=== PATIENT | female | born 1940 ===

== ENCOUNTER 2018-01-12 06:05 | Day surgery (SDC) | payer OTHER ==
[~2018-01-12 06:05] MED LIST: SIMVASTATIN10 MG PO; SYNTHROID75 MCG PO; TENORMIN50 M1 PO
[2018-01-12] MEDS ORDERED: ZITHROMAX TRI-500 MG PO (09:19)
== END 2018-01-12 13:35 | disposition home or self-care (01) ==
LOC: CIR.AMB 06:05
DX: C54.1 Malignant neoplasm of endometrium (principal)

== ENCOUNTER 2018-03-07 14:44 | Inpatient (IN) | payer OTHER ==
[~2018-03-07] VITALS: Ht 160 cm; Wt 84.4 kg
[~2018-03-07 14:44] MED LIST changes: +ZITHROMAX TRI-500 MG PO
== END 2018-03-10 19:25 | disposition home or self-care (01) | DRG 741 ==
LOC: O/R 03-09 07:02 → OB/GYN 03-09 07:02 → O/R 03-09 14:43 → OB/GYN 03-09 17:51 → O/R 03-09 20:00 → OB/GYN 03-10 19:25
PROVIDERS: Obstetrics & Gynecology Gynecologic Oncology
PROC: 0UT24ZZ Resection of Bilateral Ovaries, Percutaneous Endoscopic Approach (ICD-10-PCS; 2018-03-09)
PROC: 0UT74ZZ Resection of Bilateral Fallopian Tubes, Percutaneous Endoscopic Approach (ICD-10-PCS; 2018-03-09)
PROC: 07BC4ZX Excision of Pelvis Lymphatic, Percutaneous Endoscopic Approach, Diagnostic (ICD-10-PCS; 2018-03-09)
PROC: 0DN84ZZ Release Small Intestine, Percutaneous Endoscopic Approach (ICD-10-PCS; 2018-03-09)
PROC: 0DNU4ZZ Release Omentum, Percutaneous Endoscopic Approach (ICD-10-PCS; 2018-03-09)
PROC: 0UT94ZZ Resection of Uterus, Percutaneous Endoscopic Approach (ICD-10-PCS; principal; 2018-03-09 20:00)
DX: C54.1 Malignant neoplasm of endometrium (principal); Z85.3 Personal history of malignant neoplasm of breast

== ENCOUNTER 2023-11-16 10:04 | Outpatient (CLI) | payer OTHER | END 2023-11-16 10:17 | disposition home or self-care (01) | LOC: SONOGRAMA 10:04 | PROVIDERS: ATTEND Otolaryngology | DX: E03.9 Hypothyroidism, unspecified (principal); E04.2 Nontoxic multinodular goiter ==